=== PATIENT | male | born 1950 | race Caucasian/White ===

== ENCOUNTER → 2019-08-20 | Outpatient (CLI) | payer OTHER | END | disposition home or self-care (01) | LOC: XYW 07:43 | PROVIDERS: ATTEND Internal Medicine | DX: I10 Essential (primary) hypertension (principal); I25.10 Atherosclerotic heart disease of native coronary artery without angina pectoris; Z95.1 Presence of aortocoronary bypass graft | CPT/HCPCS: 78452; 93017; A9500 ==

== ENCOUNTER → 2019-08-30 | Outpatient (CLI) | payer OTHER ==
[2019-08-30 09:27] LABS: BUN/Creatinine Ratio 17.1; Potassium 4.2 mmol/L (3.5-5.1)
== END | disposition home or self-care (01) ==
LOC: LAB 08:44
PROVIDERS: ATTEND Student in an Organized Health Care Education/Training Program
DX: I12.9 Hypertensive chronic kidney disease with stage 1 through stage 4 chronic kidney disease, or unspecified chronic kidney disease (principal); N18.3 Chronic kidney disease, stage 3 (moderate)
CPT/HCPCS: 36415; 80048

== ENCOUNTER → 2019-09-07 | Outpatient (CLI) | payer OTHER ==
[2019-09-07 10:53] LABS: Basophils # (auto) 0.1 uL; Basophils % (auto) 0.7 % (0.0-2.0); Eosinophils # (auto) 0.3 uL; Eosinophils % (auto) 2.7 % (0.0-7.0); Hematocrit 31.7 % (41.0-53.0); Hemoglobin 10.8 g/dL (13.5-17.5); Lymphocytes # (auto) 2.1 uL; Lymphocytes % (auto) 21.6 % (10.0-50.0); Mean Corpuscular Hemoglobin 31.7 pg (28.0-32.0); Mean Corpuscular Hgb Conc. 33.9 g/dL (32.0-36.0); Mean Corpuscular Volume 93.7 fL (80.0-100.0); Monocytes # (auto) 0.8 uL; Monocytes % (auto) 8.8 % (0.0-12.0); Neutrophils # (auto) 6.3 uL; Neutrophils % (auto) 66.2 % (37.0-80.0); Platelet Count (auto) 260 10^3/uL (140-450); Red Blood Cells 3.39 10^6/uL (4.5-5.90); Red Cell Distribution Width 13.3 % (11.8-14.3); White Blood Cell 9.6 10^3/uL (4.4-10.8)
[2019-09-07 11:20] LABS: Calcium 8.2 mg/dL (8.5-10.1); Potassium 4.4 mmol/L (3.5-5.1)
== END | disposition home or self-care (01) ==
LOC: LAB 10:37
PROVIDERS: ATTEND Student in an Organized Health Care Education/Training Program
DX: N18.3 Chronic kidney disease, stage 3 (moderate) (principal); D63.1 Anemia in chronic kidney disease
CPT/HCPCS: 36415; 80048; 85025

== ENCOUNTER → 2019-11-01 | Outpatient (CLI) | payer OTHER ==
[2019-11-01 14:24] LABS: Basophils # (auto) 0 uL; Basophils % (auto) 0.5 % (0.0-2.0); Eosinophils # (auto) 0.2 uL; Eosinophils % (auto) 3.4 % (0.0-7.0); Hematocrit 33.8 % (41.0-53.0); Hemoglobin 11.3 g/dL (13.5-17.5); Lymphocytes % (auto) 15.6 % (10.0-50.0); Mean Corpuscular Hemoglobin 31.6 pg (28.0-32.0); Mean Corpuscular Hgb Conc. 33.4 g/dL (32.0-36.0); Mean Corpuscular Volume 94.6 fL (80.0-100.0); Monocytes # (auto) 0.4 uL; Monocytes % (auto) 6.3 % (0.0-12.0); Neutrophils # (auto) 4.9 uL; Neutrophils % (auto) 74.2 % (37.0-80.0); Platelet Count (auto) 229 10^3/uL (140-450); Red Blood Cells 3.57 10^6/uL (4.5-5.90); Red Cell Distribution Width 13.6 % (11.8-14.3); White Blood Cell 6.6 10^3/uL (4.4-10.8)
[2019-11-01 14:25] LABS: Urine Blood Negative /uL (Negative); Urine Specific Gravity 1.018 (1.001-1.035)
[2019-11-01 14:59] LABS: Albumin 3.4 g/dL (3.4-5.0); Calcium 8.2 mg/dL (8.5-10.1)
[2019-11-01 15:01] LABS: Bilirubin, Total 0.4 mg/dL (0.2-1.0); Creatinine, Urine 47 mg/dL (30.0-125.0); Total Protein 7.1 g/dL (6.4-8.2)
[2019-11-01 15:20] LABS: BUN/Creatinine Ratio 17.1; Potassium 5.6 mmol/L (3.5-5.1)
== END | disposition home or self-care (01) ==
LOC: LAB 14:03
PROVIDERS: ATTEND Student in an Organized Health Care Education/Training Program
DX: R80.9 Proteinuria, unspecified (principal); D63.1 Anemia in chronic kidney disease; N18.3 Chronic kidney disease, stage 3 (moderate)
CPT/HCPCS: 36415; 80053; 81003; 82570; 84156; 85025

== ENCOUNTER → 2020-01-17 | Outpatient (CLI) | payer OTHER ==
[2020-01-17 12:45] LABS: Basophils # (auto) 0.1 10 ^3/uL (0-0.2); Basophils % (auto) 0.9 % (0.0-2.0); Eosinophils # (auto) 0.2 10 ^3/uL (0-0.8); Eosinophils % (auto) 2.2 % (0.0-7.0); Hematocrit 36.8 % (41.0-53.0); Hemoglobin 12.5 g/dL (13.5-17.5); Lymphocytes # (auto) 1.7 10 ^3/uL (0.4-5.4); Lymphocytes % (auto) 19.9 % (10.0-50.0); Mean Corpuscular Hemoglobin 32.2 pg (28.0-32.0); Mean Corpuscular Hgb Conc. 33.9 g/dL (32.0-36.0); Mean Corpuscular Volume 95.1 fL (80.0-100.0); Monocytes # (auto) 0.6 10 ^3/uL (0-1.3); Neutrophils # (auto) 6.1 10 ^3/uL (1.6-8.6); Nucleated Red Blood Cells % 0.1 %; Platelet Count (auto) 298 10^3/uL (140-450); Red Blood Cells 3.87 10^6/uL (4.5-5.90); Red Cell Distribution Width 12.7 % (11.8-14.3); White Blood Cell 8.7 10^3/uL (4.4-10.8)
[2020-01-17 13:51] LABS: Albumin 3.4 g/dL (3.4-5.0); Potassium 5.5 mmol/L (3.5-5.1)
[2020-01-17 13:54] LABS: BUN/Creatinine Ratio 22.1; Bilirubin, Total 0.4 mg/dL (0.2-1.0); Total Protein 7.1 g/dL (6.4-8.2)
[2020-01-17 14:01] LABS: Folate (Folic Acid) 16.51 ng/mL (5.38-24)
== END | disposition home or self-care (01) ==
LOC: LAB 12:26
PROVIDERS: ATTEND Internal Medicine
DX: E11.22 Type 2 diabetes mellitus with diabetic chronic kidney disease (principal); N18.3 Chronic kidney disease, stage 3 (moderate); D63.1 Anemia in chronic kidney disease; E56.9 Vitamin deficiency, unspecified
CPT/HCPCS: 36415; 80053; 82306; 82607; 82746; 83036; 85025

== ENCOUNTER → 2020-02-10 | Outpatient (CLI) | payer OTHER | END | disposition home or self-care (01) | LOC: XY 07:41 | PROVIDERS: ATTEND Internal Medicine Gastroenterology | DX: K31.89 Other diseases of stomach and duodenum (principal) | CPT/HCPCS: 78264; A9541 ==

== ENCOUNTER → 2020-03-23 | Outpatient (CLI) | payer OTHER ==
[2020-03-23 11:40] LABS: Basophils # (auto) 0.1 10 ^3/uL (0-0.2); Basophils % (auto) 0.7 % (0.0-2.0); Eosinophils # (auto) 0.2 10 ^3/uL (0-0.8); Eosinophils % (auto) 2.4 % (0.0-7.0); Hematocrit 37.9 % (41.0-53.0); Hemoglobin 12.7 g/dL (13.5-17.5); Lymphocytes # (auto) 1.4 10 ^3/uL (0.4-5.4); Lymphocytes % (auto) 18.6 % (10.0-50.0); Mean Corpuscular Hemoglobin 31.7 pg (28.0-32.0); Mean Corpuscular Hgb Conc. 33.6 g/dL (32.0-36.0); Mean Corpuscular Volume 94.4 fL (80.0-100.0); Monocytes # (auto) 0.5 10 ^3/uL (0-1.3); Neutrophils # (auto) 5.4 10 ^3/uL (1.6-8.6); Neutrophils % (auto) 71.3 % (37.0-80.0); Platelet Count (auto) 350 10^3/uL (140-450); Red Blood Cells 4.01 10^6/uL (4.5-5.90); White Blood Cell 7.6 10^3/uL (4.4-10.8)
[2020-03-23 11:53] LABS: Albumin 3.6 g/dL (3.4-5.0); BUN/Creatinine Ratio 16.3; Calcium 8.9 mg/dL (8.5-10.1)
[2020-03-23 12:05] LABS: Bilirubin, Total 0.4 mg/dL (0.2-1.0); Total Protein 7.7 g/dL (6.4-8.2)
[2020-03-23 13:21] LABS: Potassium 5.8 mmol/L (3.5-5.1)
== END | disposition home or self-care (01) ==
LOC: LAB 11:10
PROVIDERS: ATTEND Internal Medicine
DX: I12.9 Hypertensive chronic kidney disease with stage 1 through stage 4 chronic kidney disease, or unspecified chronic kidney disease (principal); N18.4 Chronic kidney disease, stage 4 (severe); E78.5 Hyperlipidemia, unspecified
CPT/HCPCS: 36415; 80053; 85025

== ENCOUNTER → 2020-03-28 | Outpatient (CLI) | payer OTHER ==
[2020-03-28 15:10] LABS: BUN/Creatinine Ratio 14.1; Potassium 4.8 mmol/L (3.5-5.1)
== END | disposition home or self-care (01) ==
LOC: LAB 14:31
PROVIDERS: ATTEND Internal Medicine
DX: E11.22 Type 2 diabetes mellitus with diabetic chronic kidney disease (principal); I12.9 Hypertensive chronic kidney disease with stage 1 through stage 4 chronic kidney disease, or unspecified chronic kidney disease; N18.4 Chronic kidney disease, stage 4 (severe)
CPT/HCPCS: 36415; 80048; 83036

== ENCOUNTER → 2020-04-24 | Outpatient (CLI) | payer OTHER ==
[2020-04-24 16:27] LABS: Urine Bacteria NONE SEEN /hpf (None Seen); Urine Blood Negative /uL (Negative); Urine Hyaline Cast FEW /lpf (0 - 2); Urine Specific Gravity 1.017 (1.001-1.035); Urine WBC 1 /hpf (0 - 3)
[2020-04-24 16:34] LABS: BUN/Creatinine Ratio 18.6; Calcium 8.7 mg/dL (8.5-10.1); Potassium 4.5 mmol/L (3.5-5.1)
== END | disposition home or self-care (01) ==
LOC: LAB 15:19
PROVIDERS: ATTEND Internal Medicine
DX: E11.22 Type 2 diabetes mellitus with diabetic chronic kidney disease (principal); N18.9 Chronic kidney disease, unspecified
CPT/HCPCS: 36415; 80048; 81001; 82043; 83036

== ENCOUNTER → 2020-05-09 | Outpatient (CLI) | payer OTHER ==
[2020-05-09 14:06] LABS: Basophils # (auto) 0 10 ^3/uL (0-0.2); Basophils % (auto) 0.5 % (0.0-2.0); Eosinophils # (auto) 0.2 10 ^3/uL (0-0.8); Eosinophils % (auto) 2.9 % (0.0-7.0); Hematocrit 34.8 % (41.0-53.0); Hemoglobin 11.9 g/dL (13.5-17.5); Lymphocytes # (auto) 1.7 10 ^3/uL (0.4-5.4); Lymphocytes % (auto) 20.9 % (10.0-50.0); Mean Corpuscular Hgb Conc. 34.3 g/dL (32.0-36.0); Mean Corpuscular Volume 96.3 fL (80.0-100.0); Monocytes # (auto) 0.8 10 ^3/uL (0-1.3); Monocytes % (auto) 10.3 % (0.0-12.0); Neutrophils # (auto) 5.3 10 ^3/uL (1.6-8.6); Neutrophils % (auto) 65.4 % (37.0-80.0); Platelet Count (auto) 307 10^3/uL (140-450); Red Blood Cells 3.62 10^6/uL (4.5-5.90); Red Cell Distribution Width 12.9 % (11.8-14.3); Urine Bacteria NONE SEEN /hpf (None Seen); Urine Blood Negative /uL (Negative); Urine Hyaline Cast FEW /lpf (0 - 2); Urine Specific Gravity 1.011 (1.001-1.035); Urine WBC 1 /hpf (0 - 3); White Blood Cell 8.1 10^3/uL (4.4-10.8)
[2020-05-09 14:29] LABS: Protein, Urine 15.9 mg/dL (0.0-11.9)
[2020-05-09 14:30] LABS: BUN/Creatinine Ratio 13.7; Calcium 8.5 mg/dL (8.5-10.1); Potassium 4.4 mmol/L (3.5-5.1)
== END | disposition home or self-care (01) ==
LOC: LAB 13:38
PROVIDERS: ATTEND Student in an Organized Health Care Education/Training Program
DX: N18.4 Chronic kidney disease, stage 4 (severe) (principal); D63.1 Anemia in chronic kidney disease; E11.9 Type 2 diabetes mellitus without complications; N39.0 Urinary tract infection, site not specified; R80.9 Proteinuria, unspecified
CPT/HCPCS: 36415; 80048; 81001; 82570; 83036; 84156; 84300; 85025

== ENCOUNTER 2020-06-05 16:58 | Inpatient (IN) | payer OTHER ==
[~2020-06-05] VITALS: Ht 175.3 cm; Wt 80.4 kg
[2020-06-05] MEDS ORDERED: CLINDAMYCIN 600MG IV 50 ML IV ONE (17:30)
[2020-06-05] MEDS ORDERED: SODIUM CHLORIDE 0.9% 1,000 ML IV SCH (17:43)
[2020-06-05] MEDS ORDERED: LACTATED RINGER'S 1,000 ML IV ONE (17:45)
[2020-06-05] MEDS ORDERED: DEXTROSE (50%) 50ML SYRG IV PRN (17:45)
[2020-06-05] MEDS ORDERED: ONDANSETRON HCL 4 MG/2 ML VIAL IV PRN (17:45)
[2020-06-05] MEDS ORDERED: DOCUSATE SOD 100 MG CAP PO PRN (17:45)
[2020-06-05] MEDS ORDERED: ACETAMINOPHEN 325 MG TAB PO PRN (17:45)
[2020-06-05] MEDS ORDERED: MORPHINE SULF INJ 2 MG/ML SYRINGE 1ML IV PRN ×2 (17:45)
[2020-06-05] MEDS ORDERED: NITROGLYCERIN 0.4 MG SL TAB SL PRN (17:45)
[2020-06-05] MEDS ORDERED: LISINOPRIL 10 MG TAB PO ONE (17:45)
[2020-06-05] MEDS ORDERED: LORazepam 0.5 MG TAB PO PRN (17:45)
[2020-06-05] MEDS ORDERED: PIPERACILLIN-TAZOB 3.375GM 100 ML IV ONE (17:45)
[2020-06-05] MEDS ORDERED: VANCOMYCIN PER PHARMACY 0 MG IV SCH (17:45)
[2020-06-05] MEDS ORDERED: FURO40TA4 PO (18:33)
[2020-06-05] MEDS ORDERED: IBUP800T24 PO (18:33)
[2020-06-05] MEDS ORDERED: RANO10003 PO (18:33)
[2020-06-05] MEDS ORDERED: NIFE1TAB31 PO (18:33)
[2020-06-05] MEDS ORDERED: GABA300C10 PO (18:33)
[2020-06-05] MEDS ORDERED: DULA1INJ SC (18:33)
[2020-06-05] MEDS ORDERED: CLOP75TA41 PO (18:33)
[2020-06-05] MEDS ORDERED: GLIP2.5T28 PO (18:33)
[2020-06-05] MEDS ORDERED: ROSU20TA14 PO (18:33)
[2020-06-05] MEDS ORDERED: CLIN300C8 PO (18:33)
[2020-06-05] MEDS ORDERED: INSUINJ37 SC (18:33)
[2020-06-05] MEDS ORDERED: INSU100I43 SC (18:33)
[2020-06-05] MEDS ORDERED: LOSA25TA38 PO (18:33)
[2020-06-05] MEDS ORDERED: ASPI-498 PO (18:33)
[2020-06-05] MEDS ORDERED: PATI1POW PO (18:33)
[2020-06-05] MEDS ORDERED: METO-169 PO (18:33)
[2020-06-05 20:01] LABS: Albumin 3.4 g/dL (3.4-5.0); Calcium 8.7 mg/dL (8.5-10.1); Potassium 4.3 mmol/L (3.5-5.1)
[2020-06-05 20:04] LABS: BUN/Creatinine Ratio 15.5; Bilirubin, Total 0.4 mg/dL (0.2-1.0); Total Protein 7.7 g/dL (6.4-8.2)
[2020-06-05 20:07] LABS: Basophils # (auto) 0.1 10 ^3/uL (0-0.2); Basophils % (auto) 0.6 % (0.0-2.0); Cholesterol 171 mg/dL (< 200); Eosinophils # (auto) 0.3 10 ^3/uL (0-0.8); Eosinophils % (auto) 2.2 % (0.0-7.0); HDL Cholesterol 42 mg/dL (40-59); Hematocrit 31.5 % (41.0-53.0); Hemoglobin 10.9 g/dL (13.5-17.5); LDL Cholesterol 96 mg/dL (< 100); Lymphocytes # (auto) 1.8 10 ^3/uL (0.4-5.4); Lymphocytes % (auto) 13.8 % (10.0-50.0); Mean Corpuscular Hemoglobin 32.8 pg (28.0-32.0); Mean Corpuscular Hgb Conc. 34.4 g/dL (32.0-36.0); Mean Corpuscular Volume 95.3 fL (80.0-100.0); Monocytes % (auto) 7.7 % (0.0-12.0); Neutrophils # (auto) 9.8 10 ^3/uL (1.6-8.6); Neutrophils % (auto) 75.7 % (37.0-80.0); Platelet Count (auto) 447 10^3/uL (140-450); Red Blood Cells 3.31 10^6/uL (4.5-5.90); Red Cell Distribution Width 12.6 % (11.8-14.3); Triglycerides 229 mg/dL (< 150)
[2020-06-05 20:12] VITALS: BP 126/67
--- NOTE | 2020-06-05 20:12 | NUR ---
Patient arrived to unit. Patient arrived via wheelchair. A&Ox4. Patient had no signs and symptoms of distress or pain. Patient oriented to unit, room, bathroom, and call light. Patient verbalized understanding. Patient's right foot has a dressing placed, dry and intact. Pictures taken. Safety measures maintained by keeping the bed locked in lowest position, 2 side rails up, personal items and call light within reach. Will continue to monitor Q1H. Addendum: 06/06/20 at 0257 by SILVANO MOORE RN RN Tele box #[id number]. SR in the 60s.
[2020-06-05 20:15] LABS: INR 1.01 (0.9-1.15); Partial Thromboplastin Time 28.5 sec (23.0-31.2)
[2020-06-05] MEDS ORDERED: VANCOMYCIN 1GM/250ML 250 ML IV ONE (21:00)
--- NOTE | 2020-06-05 21:00 | NUR ---
Avi hospitalist Patient's blood sugar 429. 15 units of insulin given. Addendum: 06/05/20 at 2305 by SILVANO MOORE RN RN Patient has no signs and symptoms of distress at this time.
[2020-06-05 22:00] VITALS: BP 126/67
[2020-06-05] MEDS: ACCU-CHEK COMFORT CURVE STRIP VI SCH ×2 (22:11→23:47)
[2020-06-05] MEDS: InsuLIN REG 1unit/0.01ml Soln (100units/ml) SC SCH ×2 (22:12→23:48)
[2020-06-05] MEDS ORDERED: FUROSEMIDE 40 MG/4 ML VIAL IV ONE (23:00)
--- NOTE | 2020-06-06 | NUR ---
Paged Hospitalist Patient's blood sugar 424. 15 units given. No signs and symptoms of distress at this time.
--- NOTE | 2020-06-06 00:38 | NUR ---
Hospitalist aware of high blood sugar. No new orders at this time
[2020-06-06] MEDS: PIPERACILLIN-TAZOB 3.375GM 100 ML IV SCH ×2 (01:59→06:16)
[2020-06-06 02:37] LABS: Urine WBC None Seen /hpf (0 - 3)
[2020-06-06 02:44] LABS: Urine Bacteria NONE SEEN /hpf (None Seen); Urine Blood 1+ /uL (Negative); Urine Specific Gravity 1.005 (1.001-1.035)
[2020-06-06 02:53] LABS: Alcohol, Urine < 3.0 mg/dL (0-10); Amphetamine Screen, Urine NEGATIVE (NEGATIVE); Barbiturate Scree,Urine NEGATIVE (NEGATIVE); Benzodiazephine Screen, Urine NEGATIVE (NEGATIVE); Cannabinoid Screen, Urine NEGATIVE (NEGATIVE); Cocaine Screen, Urine NEGATIVE (NEGATIVE); Opiate Scree,Urine NEGATIVE (NEGATIVE); Phencyclidine Screen, Urine NEGATIVE (NEGATIVE)
[2020-06-06 05:00] VITALS: BP 99/53
[2020-06-06] MEDS ORDERED: FUROSEMIDE 40 MG/4 ML VIAL IV SCH (06:00)
[2020-06-06] MEDS: InsuLIN REG 1unit/0.01ml Soln (100units/ml) SC SCH ×3 (06:00→18:04)
[2020-06-06] MEDS: ACCU-CHEK COMFORT CURVE STRIP VI SCH ×3 (06:11→17:57)
[2020-06-06] MEDS: GABAPENTIN 300 MG CAP PO SCH ×3 (06:16→22:17)
[2020-06-06 08:00] VITALS: BP 94/43
[2020-06-06] MEDS ORDERED: LISINOPRIL 10 MG TAB PO SCH (10:00)
[2020-06-06] MEDS: METOPROLOL SUCCINATE XL 50 MG TAB PO SCH (10:00)
[2020-06-06] MEDS: NIFEdipine ER 30 MG TAB PO SCH (10:00)
[2020-06-06] MEDS: LOSARTAN POTASSIUM 25 MG TAB PO SCH (10:00)
[2020-06-06] MEDS: RANOLAZINE ER 500 MG TAB PO SCH ×2 (10:00→22:17)
[2020-06-06] MEDS: ENOXAPARIN SOD 30 MG/0.3 ML SYRINGE SC SCH (11:30)
[2020-06-06] MEDS: ASPirin-EC 81 mg tab PO SCH (11:31)
[2020-06-06] MEDS ORDERED: DAPTOmycin 300 MG in SODIUM CHL 0.9% 50 ML IV SCH (14:00)
[2020-06-06] MEDS: LINEZOLID 600MG/300ML 300 ML IV SCH (15:02)
--- NOTE | 2020-06-06 19:30 | NUR ---
Opening Shift Note Assumed care of patient, awake and alert. A&Ox4. No S/S of distress/SOB or pain. Safety measures maintained by keeping the bed locked in lowest position, 2 side rails up, personal items and call light within reach. Instructed on POC and to call for assist PRN, will continue to monitor for changes Q1hr and PRN.
[2020-06-06 22:00] VITALS: BP 116/62
[2020-06-06] MEDS ORDERED: INSULIN LANTUS (GLARGINE) 1 /0.01ml (100units/ml) SC SCH (22:00)
[2020-06-06] MEDS ORDERED: MEROPENEM 500MG IVPB 50 ML IV SCH (22:00)
[2020-06-06] MEDS: ATORVASTATIN 20 MG TAB PO SCH (22:17)
[2020-06-06] MEDS: INSULIN 70/30 1unit/0.01ml Susp (100units/ml) SC SCH (22:30)
[2020-06-07] MEDS: ACCU-CHEK COMFORT CURVE STRIP VI SCH ×5 (00:23→21:46)
[2020-06-07] MEDS: InsuLIN REG 1unit/0.01ml Soln (100units/ml) SC SCH ×5 (00:24→23:58)
[2020-06-07] MEDS: LINEZOLID 600MG/300ML 300 ML IV SCH ×2 (01:35→14:24)
[2020-06-07 05:00] VITALS: BP 118/66
[2020-06-07 05:54] LABS: Basophils # (auto) 0.1 10 ^3/uL (0-0.2); Basophils % (auto) 0.5 % (0.0-2.0); Eosinophils # (auto) 0.3 10 ^3/uL (0-0.8); Eosinophils % (auto) 2.2 % (0.0-7.0); Hematocrit 26.7 % (41.0-53.0); Hemoglobin 9.2 g/dL (13.5-17.5); Lymphocytes # (auto) 1.3 10 ^3/uL (0.4-5.4); Lymphocytes % (auto) 10.8 % (10.0-50.0); Mean Corpuscular Hemoglobin 32.2 pg (28.0-32.0); Mean Corpuscular Hgb Conc. 34.6 g/dL (32.0-36.0); Mean Corpuscular Volume 93.1 fL (80.0-100.0); Monocytes # (auto) 1.1 10 ^3/uL (0-1.3); Monocytes % (auto) 9.4 % (0.0-12.0); Neutrophils # (auto) 9.1 10 ^3/uL (1.6-8.6); Neutrophils % (auto) 77.1 % (37.0-80.0); Platelet Count (auto) 413 10^3/uL (140-450); Red Blood Cells 2.87 10^6/uL (4.5-5.90); Red Cell Distribution Width 12.2 % (11.8-14.3); White Blood Cell 11.8 10^3/uL (4.4-10.8)
[2020-06-07] MEDS: GABAPENTIN 300 MG CAP PO SCH ×3 (06:01→21:36)
[2020-06-07 06:09] LABS: INR 1.03 (0.9-1.15); Partial Thromboplastin Time 28.8 sec (23.0-31.2)
[2020-06-07 06:13] LABS: Calcium 8.1 mg/dL (8.5-10.1); Potassium 4.4 mmol/L (3.5-5.1)
[2020-06-07 06:17] LABS: BUN/Creatinine Ratio 18.4
[2020-06-07 09:00] VITALS: BP 125/59
[2020-06-07] MEDS ORDERED: LIDOCAINE 1% HCL (LOCAL ANESTH.) INJ 20ML MDV ONE (09:56)
[2020-06-07] MEDS ORDERED: BUPIVACAINE HCL 50 ML ONE (09:57)
[2020-06-07] MEDS ORDERED: ceFAZolin 1GM/50ML 100 ML IV ONE (09:59)
[2020-06-07] MEDS: INSULIN 70/30 1unit/0.01ml Susp (100units/ml) SC SCH ×2 (10:00→21:49)
[2020-06-07] MEDS ORDERED: MEROPENEM 1GM IVPB 100 ML IV SCH (10:00)
[2020-06-07] MEDS: ENOXAPARIN SOD 30 MG/0.3 ML SYRINGE SC SCH (10:00)
[2020-06-07] MEDS ORDERED: PROPOFOL 10 MG/ML 20 ML IV ONE (10:15)
[2020-06-07] MEDS ORDERED: HYDROmorphone HCL 2 MG/ML VL IV PRN (10:30)
[2020-06-07] MEDS ORDERED: ONDANSETRON HCL 4 MG/2 ML VIAL IV PRN (10:30)
[2020-06-07] MEDS ORDERED: MORPHINE SULFATE 4 MG/ML SYR/VIAL IV PRN (10:30)
[2020-06-07] MEDS ORDERED: ePHEDrine SULFATE 50 MG/ML AMP IV PRN (10:30)
[2020-06-07] MEDS ORDERED: MIDAZOLAM HCL 1MG/1ML-2 ML VIAL IV PRN (10:30)
[2020-06-07] MEDS ORDERED: LABETALOL HCL 5 MG/ML 4ML SYRINGE IV PRN (10:30)
[2020-06-07] MEDS ORDERED: ACCU-CHEK COMFORT CURVE STRIP VI ONE (10:30)
[2020-06-07] MEDS ORDERED: MIDAZOLAM HCL 1MG/1ML-2 ML VIAL ONE (10:34)
[2020-06-07] MEDS ORDERED: fentaNYL CITRATE 100 MCG/2 ML VL ONE (10:34)
[2020-06-07] MEDS: SODIUM FERR GLUC 62.5MG/5ML 125 MG in SODIUM CHL 0.9% 100 ML IV SCH (12:00)
[2020-06-07] MEDS ORDERED: DexAMETHasone SOD PHOS 10MG/1ML VIAL INJ ONE (12:50)
[2020-06-07 13:00] VITALS: BP 139/73
[2020-06-07] MEDS: LOSARTAN POTASSIUM 25 MG TAB PO SCH (14:13)
[2020-06-07] MEDS: ASPirin-EC 81 mg tab PO SCH (14:14)
[2020-06-07] MEDS: RANOLAZINE ER 500 MG TAB PO SCH ×2 (14:16→21:36)
[2020-06-07] MEDS: NIFEdipine ER 30 MG TAB PO SCH (14:17)
[2020-06-07] MEDS: METOPROLOL SUCCINATE XL 50 MG TAB PO SCH (14:17)
--- NOTE | 2020-06-07 14:45 | NUR ---
at bedside MD Welsh at bedside, aware of patient's status. states possible dc home tomorrow with HH as patient refuses to go to SNF at this time stating he will have someone at home to help him with abx and dressing changes. New orders for midline obtained and PICC rn paged. Cont care
--- NOTE | 2020-06-07 16:49 | NUR ---
Regarding midline per Henny picc rn Delia rn will do midline this afternoon.
[2020-06-07] MEDS: MEROPENEM 1GM IVPB 100 ML IV SCH (17:25)
[2020-06-07 17:30] VITALS: BP 126/64
--- NOTE | 2020-06-07 17:52 | NUR ---
Midline Placement: Patient educated on need for midline placement. All risks and benefits explained and all questions and concerns addresses prior to procedure. 18g/10cm midline inserted via RIGHT BRACHIAL vein using Ultrasound. Sterile technique utilized. Blood return obtained from THE lumen and flushed easily with NS using proper technique. Midline secured with saline lock; biodisc and occlusive dressing applied. Primary RN notified. Midline lot # [id number].
--- NOTE | 2020-06-07 19:05 | NUR ---
Patient care endorsed endorsed care to Monica tomas. Patient laying comfortably in bed no acute distress or sob. Patient denies pain at this time, call light within reach. Dressing c/d/i to right foot.
--- NOTE | 2020-06-07 19:23 | NUR ---
Opening Shift Note Assumed care of patient. Patient is awake, alert, and oriented X 4. No S/S of respiratory distress noted or reported. Patient denies any pain at this time. Bed in lowest locked position, side rails x 2 up, call light is within reach. POC discussed with the patient. Instructed to to call for assistance PRN. Will continue to monitor for changes Q1hr and PRN.
[2020-06-07 20:00] VITALS: BP 120/67
[2020-06-07] MEDS: ATORVASTATIN 20 MG TAB PO SCH (21:35)
[2020-06-07 22:00] VITALS: BP 120/67
[2020-06-08] MEDS: LINEZOLID 600MG/300ML 300 ML IV SCH ×2 (01:59→14:03)
[2020-06-08 04:42] VITALS: BP 104/62
[2020-06-08] MEDS: MEROPENEM 1GM IVPB 100 ML IV SCH ×2 (05:32→16:52)
[2020-06-08 06:00] VITALS: BP 114/64
[2020-06-08] MEDS: InsuLIN REG 1unit/0.01ml Soln (100units/ml) SC SCH ×2 (06:00→12:00)
[2020-06-08 06:06] LABS: Basophils # (auto) 0.1 10 ^3/uL (0-0.2); Basophils % (auto) 0.6 % (0.0-2.0); Eosinophils # (auto) 0.2 10 ^3/uL (0-0.8); Eosinophils % (auto) 1.9 % (0.0-7.0); Hematocrit 26.8 % (41.0-53.0); Hemoglobin 8.9 g/dL (13.5-17.5); Lymphocytes # (auto) 1.4 10 ^3/uL (0.4-5.4); Lymphocytes % (auto) 12.4 % (10.0-50.0); Mean Corpuscular Hemoglobin 31.6 pg (28.0-32.0); Mean Corpuscular Hgb Conc. 33.3 g/dL (32.0-36.0); Mean Corpuscular Volume 94.8 fL (80.0-100.0); Neutrophils # (auto) 8.8 10 ^3/uL (1.6-8.6); Neutrophils % (auto) 76.1 % (37.0-80.0); Platelet Count (auto) 400 10^3/uL (140-450); Red Blood Cells 2.83 10^6/uL (4.5-5.90); Red Cell Distribution Width 12.3 % (11.8-14.3); White Blood Cell 11.6 10^3/uL (4.4-10.8)
[2020-06-08 06:22] LABS: Potassium 4.5 mmol/L (3.5-5.1)
[2020-06-08 06:26] LABS: BUN/Creatinine Ratio 17.4
[2020-06-08] MEDS: ACCU-CHEK COMFORT CURVE STRIP VI SCH ×2 (06:48→12:05)
[2020-06-08] MEDS: GABAPENTIN 300 MG CAP PO SCH ×2 (06:49→14:04)
[2020-06-08] MEDS: HYDROcodone-ACET 5/325MG TAB PO PRN ×2 (06:54→14:11)
--- NOTE | 2020-06-08 07:50 | NUR ---
OPENING SHIFT NOTE: PATIENT RESTING IN BED, AWAKE. PATIENT A/OX4 CALM AND RELAXED, PATIENT REPORTED HE JUST RECEIVED A NORCO. UPDATED ON PLAN OF CARE. RIGHT FOOT DRESSING CDI. RESPIRATIONS EVEN AND UNLABORED, FALL PRECAUTIONS IN PLACE. CALL LIGHT WITHIN REACH, WILL CONTINUE TO MONITOR.
--- NOTE | 2020-06-08 09:10 | NUR ---
MD RAMIREZ SAWANT.
[2020-06-08] MEDS: ASPirin-EC 81 mg tab PO SCH (09:58)
[2020-06-08] MEDS: LOSARTAN POTASSIUM 25 MG TAB PO SCH (09:58)
[2020-06-08] MEDS: NIFEdipine ER 30 MG TAB PO SCH (09:59)
[2020-06-08] MEDS: RANOLAZINE ER 500 MG TAB PO SCH (10:00)
[2020-06-08] MEDS: INSULIN 70/30 1unit/0.01ml Susp (100units/ml) SC SCH (10:00)
[2020-06-08] MEDS: ENOXAPARIN SOD 30 MG/0.3 ML SYRINGE SC SCH (10:01)
[2020-06-08] MEDS: METOPROLOL SUCCINATE XL 50 MG TAB PO SCH (10:01)
[2020-06-08 11:18] VITALS: BP 114/64
[2020-06-08] MEDS: SODIUM FERR GLUC 62.5MG/5ML 125 MG in SODIUM CHL 0.9% 100 ML IV SCH (12:05)
[2020-06-08 13:00] VITALS: BP 121/64
--- NOTE | 2020-06-08 15:03 | NUR ---
Faxed home IV ATB order to [facility].
--- NOTE | 2020-06-08 15:23 | NUR ---
assessment Patient is a 70 year old male who is alert and oriented. Patients cognitive abilities are intact. Prior to admission patient lived home alone and functioned independently. Patient informed me he is able to care for his own ADLs. Per patient he will return home to his prior living arrangements post discharge and family will transport him home. Patient informed me he has a cane for home use. Patient informed me Dr Welsh is his PCP. Patient will need 2 ABX IV on discharge. I have offered patient SNF for IV ABX and patient refused stating he will return home and can do his IV's in between home health visits. Patient also informed me he will have a friend/caregiver Nunu to come and help him. Patient stated he will be fine and he feels safe returning home on discharge. Patient informed me he works from home and is happy to return home so he can get back to work. I informed patient [facility] rehabilitation caseworker and Bridgett STONE[facility] will satisfy his order. His address is [address] [place] [address] home phone is [phone]. I informed patient he has a right to speak to a psychiatric social worker supervisor regarding all care. I informed patient he has a right to participate in any and all discharge planning. Patient does not have a POA and advanced directive. I have offered patient information on POA and advanced directives. I informed the patient the advantages and benefits of having an Advanced Directive. Patient verbalized understanding and agreed to discharge plan. Addendum: 06/08/20 at 1531 by Sonia HENRIQUEZ Amended: Links added.
--- NOTE | 2020-06-08 15:26 | NUR ---
D/C Planning Per SS consult for home health IV abx for 6 weeks. DENICE Ge will complete the IV abx. Clinical information was reviewed and approved by [facility]. Faxed clinical information to [facility] and [facility]. Per Tara with [facility] they are unable to accept patient at this time due to no RN available for IV abx. Per Oscar with [facility] patient has been accepted and service to start within 24hrs upon d/c day. Provided Oscar with [facility] patient home address is [address] [place] [address] rd . [place] [id number] .
--- NOTE | 2020-06-08 16:15 | NUR ---
I called [facility] [phone] and spoke with Margaret, she said they received order, they just need to verify insurance before they can set up delivery and she will give me a call back.
--- NOTE | 2020-06-08 16:40 | NUR ---
1640 06/08/20 I spoke with Margaret at [facility] [phone]-she has verified patient's insurance-she will contact patient regarding delivery time between 8-11pm [facility]. [facility] to visit patient tomorrow-I made charge nurse Donny aware that IV ATB arrangements are complete-he will relay message to primary nurse.
[2020-06-08] MEDS ORDERED: DAKINS QUARTER STR 0.125% (NaHypochlorite) 473 ML TOPICAL SOL TOP SCH (17:00)
[2020-06-08 17:09] VITALS: BP 134/74
--- NOTE | 2020-06-08 17:39 | NUR ---
WOUND CARE PERFORMED ORDERED: DELAY FROM PHARMACY TO SEND [facility], THIS RN CALLED 3 TIMES TO SEND. PATIENT REPORTS HE WILL BE ABLE TO DRIVE HOME WITH VELCRO BOOT OVER NEW DRESSING.
--- NOTE | 2020-06-08 18:56 | NUR ---
DISCHARGE: PATIENT GIVEN ALL EDUCATION AND EDUCATION MATERIALS. PATIENT VERBALIZED UNDERSTANDING. PATIENT TELE RETURNED TO ICU, IV IN LEFT FA REMOVED, MANUAL PRESSURE APPLIED. RIGHT UA MIDLINE INTACT. PATIENT LEFT WITH ALL BELONGINGS, VIA WHEELCHAIR TO PRIVATE AUTO WITHOUT INCIDENCE.
--- NOTE | 2020-06-23 15:44 | NUR ---
re-assessment I did a follow up call to patient regarding his bandage changes and IV ABX. Patient informed me he has been taught to do his IV ABX by home health nurse. Per patient he has it down and is able to do IV ABX well. As for the bandage changes patient is unable to do himself. I informed Dr Welsh. Per Dr Welsh patient is not to change his bandages. Per Dr Welsh patient is to follow up with Dr Puri and Dr Puri will change patients bandages on every Friday. I referred patient to apply for [facility] and gave him [facility] resources. Patient to follow up with Dr Puri on Friday. Addendum: 06/23/20 at 1552 by Sonia HENRIQUEZ Amended: Links added.
== END 2020-06-08 19:02 | disposition home health service (06) | DRG 617 ==
LOC: ER 16:58 → TELE-WESTW 16:59
PROVIDERS: ADMIT Hospitalist; ATTEND Internal Medicine
PROC: 0Y6T0Z0 Detachment at Right 3rd Toe, Complete, Open Approach (ICD-10-PCS; principal; 2020-06-07 10:15)
DX: E11.621 Type 2 diabetes mellitus with foot ulcer (principal); L03.115 Cellulitis of right lower limb; E87.1 Hypo-osmolality and hyponatremia; I13.0 Hypertensive heart and chronic kidney disease with heart failure and stage 1 through stage 4 chronic kidney disease, or unspecified chronic kidney disease; N17.0 Acute kidney failure with tubular necrosis; E11.65 Type 2 diabetes mellitus with hyperglycemia; I50.9 Heart failure, unspecified; N18.3 Chronic kidney disease, stage 3 (moderate); E11.21 Type 2 diabetes mellitus with diabetic nephropathy; E11.40 Type 2 diabetes mellitus with diabetic neuropathy, unspecified; D50.9 Iron deficiency anemia, unspecified; D63.1 Anemia in chronic kidney disease; E87.5 Hyperkalemia; L97.519 Non-pressure chronic ulcer of other part of right foot with unspecified severity; I25.10 Atherosclerotic heart disease of native coronary artery without angina pectoris; E11.22 Type 2 diabetes mellitus with diabetic chronic kidney disease; E11.319 Type 2 diabetes mellitus with unspecified diabetic retinopathy without macular edema; E78.5 Hyperlipidemia, unspecified; Z95.1 Presence of aortocoronary bypass graft; Z79.02 Long term (current) use of antithrombotics/antiplatelets; Z79.4 Long term (current) use of insulin; Z79.899 Other long term (current) drug therapy; Z83.3 Family history of diabetes mellitus
CPT/HCPCS: 36415; 71045; 73700; 80048; 80053; 80061; 80202; 80307; 81001; 82728; 82962; 83036; 83540; 83615; 84484; 85025; 85045; 85610; 85730; 86850; 86900; 86901; 87040; 87070; 87075; 87077; 87086; 87186; 87205; 93005; 93306; G0378; J0690; J1100; J1815; J2001; J2185; J2250; J2543; J2704; J3490

== ENCOUNTER → 2020-06-05 | Outpatient (CLI) | payer OTHER ==
[~2020-06-05] MED LIST: ASPI-498 PO; CLIN300C8 PO; CLOP75TA41 PO; DULA1INJ SC; FURO40TA4 PO; GABA300C10 PO; GLIP2.5T28 PO; IBUP800T24 PO; INSU100I43 SC; INSUINJ37 SC; LOSA25TA38 PO; METO-169 PO; NIFE1TAB31 PO; PATI1POW PO; RANO10003 PO; ROSU20TA14 PO
== END | disposition home or self-care (01) ==
LOC: LAB 16:50
PROVIDERS: ATTEND Podiatrist
DX: E11.621 Type 2 diabetes mellitus with foot ulcer (principal)
CPT/HCPCS: 87075; 87205